=== PATIENT | female | born 1955 | race Caucasian/White ===

== ENCOUNTER → 2017-08-08 | Outpatient (CLI) | payer OTHER ==
[~2017-08-08] MED LIST: ALBUAER2 INH; AMLO10TA4 PO; APIX1TAB3 PO; ASCO100061 PO; BTP80 PO; BUSP15TA70 PO; CARV3.122 PO; CHOL100027 PO; FISHOIL PO; HYDR25TA4 PO; LORA10TA5 PO; METO100T7 PO; MULTTAB58 PO; NITR0.4S UT; PANT1TAB48 PO; POLYSOL4 OPB; TRIA0.5C4 TOP; ULT/50 PO
--- NOTE | 2017-08-08 11:23 | DIAGNOSTIC IMAGING REPORT ---
L SHOULDER MIN 2 VIEWS ROUTINE HISTORY: 62 years-old Female PAIN IN LEFT SHOULDER, CERVICALGIA - STAT acute left-sided shoulder pain without trauma COMPARISON: Chest radiograph 02/24/2016 TECHNIQUE: 3 views of the left shoulder FINDINGS: Mild glenohumeral and acromioclavicular osteoarthritis without acute fracture or dislocation. No intra-articular loose body identified. Imaged lung jackson are clear. IMPRESSION: Mild degenerative changes without acute fracture or dislocation. The above report was generated using voice recognition software. It may contain grammatical, syntax or spelling errors. Electronically signed by: Johnathon Blair M.D. 08/08/2017 11:22 AM Dictated Date/Time: 08/08/2017 11:21 AM
--- NOTE | 2017-08-08 11:38 | DIAGNOSTIC IMAGING REPORT ---
C-SPINE ROUTINE 4 OR 5 VIEWS HISTORY: Pain. Radiculopathy. PAIN IN LEFT SHOULDER, CERVICALGIA COMPARISON: None. FINDINGS: The cervical spine is visualized from C1 through the superior endplate of T1. There is no fracture. No subluxation. Disc spaces are preserved. Prevertebral soft tissues and the atlantodens interval are intact. IMPRESSION: No fracture or subluxation within the cervical spine. The above report was generated using voice recognition software. It may contain grammatical, syntax or spelling errors. Electronically signed by: Marvin Menon M.D. 08/08/2017 11:36 AM Dictated Date/Time: 08/08/2017 11:36 AM
== END | disposition home or self-care (01) ==
LOC: C.LAB1850 10:44
PROVIDERS: ATTEND Nurse Practitioner Family
DX: R29.6 Repeated falls (principal); M25.512 Pain in left shoulder; M54.2 Cervicalgia; M89.8X1 Other specified disorders of bone, shoulder